=== PATIENT | male | born 1965 | race Caucasian/White ===

== ENCOUNTER 2018-02-24 09:14 | Emergency (ER) | payer OTHER ==
[~2018-02-24] VITALS: Ht 175.3 cm; Wt 96.3 kg
[~2018-02-24 09:14] MED LIST: CARDIZEM CD,CA120 MG PO; CRESTOR20 MG PO; ISOSORBIDE MONO30 MG PO; LO-DOSE ASPIRIN81 M1 PO; OMEPRAZOLE40 M1 PO; PLAVIX75 MG PO
[2018-02-24 10:56] LABS: BASOPHIL (%) 0.7 % (0-1); EOSINOPHIL (%) 1.4 % (0-5); EOSINOPHIL COUNT 0.1 K/uL (0-0.3); HEMATOCRIT 44.8 % (38.0-50.0); HEMOGLOBIN 15.8 G/DL (12.5-16.6); IMMATURE GRANULOCYTE (%) 0.4 % (0.0-0.7); LYMPHOCYTE (%) 21.1 % (15-42); LYMPHOCYTE COUNT 1.2 K/uL (1.0-2.8); MCH 29.4 PG (29.0-34.0); MCHC 35.3 G/DL (30.0-36.0); MCV 83.4 FL (86-99); MONOCYTE (%) 7.3 % (3-12); MONOCYTE COUNT 0.4 K/uL (0-0.8); NEUTROPHIL (%) 69.1 % (45-76); NEUTROPHIL COUNT 3.9 K/uL (1.8-6.4); PLATELET COUNT 243 K/uL (156-360); RBC DIS.WIDTH-SD 36.5 % (39-53); RED BLOOD COUNT 5.37 M/uL (4.00-5.50); WHITE BLOOD COUNT 5.7 K/uL (4.1-10.2)
[2018-02-24 11:04] LABS: CHLORIDE 106 mEq/L (99-109); POTASSIUM 4.5 mEq/L (3.7-5.4); SODIUM 138 mEq/L (136-147)
[2018-02-24 11:06] LABS: GLUCOSE 112 mg/dL (70-99)
[2018-02-24 11:10] LABS: CREATININE 0.9 mg/dL (0.6-1.3); GFR ESTIMATE (CALCULATED) > 59 mL/min/ (58.99-99999)
[2018-02-24 11:11] LABS: UREA NITROGEN (BUN) 13 mg/dL (9-23)
[2018-02-24 11:16] LABS: TROP-I INTERPRETATION NEGATIVE; TROPONIN-I < 0.01 ng/mL (0.0-0.30)
[2018-02-24] MEDS ORDERED: ACYCLOVIR800 MG PO (11:39)
[2018-02-24] MEDS ORDERED: BACTRIM,SEPT1 TABLET PO (11:39)
[2018-02-24] MEDS ORDERED: MOTRIN600 MG PO (11:43)
[2018-02-24 12:03] VITALS: BP 144/95
== END 2018-02-24 12:05 | disposition home or self-care (01) ==
LOC: EME 09:14
PROVIDERS: Emergency Medicine
DX: H60.11 Cellulitis of right external ear (principal); R07.9 Chest pain, unspecified; R53.83 Other fatigue; I10 Essential (primary) hypertension; I25.2 Old myocardial infarction; K21.9 Gastro-esophageal reflux disease without esophagitis; Z95.5 Presence of coronary angioplasty implant and graft; R00.1 Bradycardia, unspecified
CPT/HCPCS: 71046; 80048; 84484; 85025; 93005; 99281; 99285; J1885; J7040